=== PATIENT | female | born 1980 | race Caucasian/White ===

== ENCOUNTER 2019-06-29 11:51 | Inpatient (IN) | payer BC ==
[2019-06-29] MEDS ORDERED: Dinoprostone* 10 MG VAG.SUPP VAGINAL ONE (12:33)
--- NOTE | 2019-06-29 12:47 | HP ---
General Information - Reason for Visit IUP at 38-6/7 with gestational hypertension here for induction of labor - General Information Maternal Age: 38 Grav: 2 Para: 1 SAB: 0 IEA: 0 Estimated Due Date: 07/07/19 Determined By: Early Ultrasound Gestational Age in Weeks/Days: 38-6/7 Maternal Blood Type and Rh: A Positive - Results this Serology/RPR Result: Non-Reactive Rubella Result: Non-Immune - equivocal x 2 HBsAg Result: Negative HIV Result: Negative GBS Culture Result: Negative Past Medical History Delivery History: Hx Uncomplicated Vaginal Delivery Delivery History Comment: 07/2008 8lbs 5oz female. ITF x 1, 2nd degree lac with repair. Del[place] [facility] [place] by Nia Mahmood CNM. FOB #1 Pertinent Past Medical History: See Records Past Medical History Comment: Seasonal and environmental allergies Pertinent Past Surgical History: None Pertinent Family History: See Records Family History Comment: Father: Parkinson's Disease Brother: Js's Disease, Crohn's Disease, Asperger Syndrome - Antepartal Records Antepartal Records: Reviewed, Complicated by: - Low lying placenta, resolved at 23 weeks. Age 38 at JOSE, Normal NIPT/MSAFP Review of Systems Constitutional: Comfortable CV Complaint: No Respiratory: Shortness of Breath: No Gastrointestinal: No Nausea/Vomiting, Normal Bowel Movement Genitourinary: No Dysuria, No Bleeding, No Leaking Fluid Musculoskeletal: No Complaint, No Epigastric Pain Neurological: No Headache, No Visual Changes Movement: Normal Exam Allergies/Adverse Reactions: Allergies No Known Allergies Allergy (Verified 08/01/13 20:23) BP 125/78 HR 78 RR 18 T 98.1 SpO2 99% on RA - Measurements Height: 5 ft 5 in Weight: 175 lb Weight in lbs: [id number] Body Mass Index (BMI): 29.1 Pre- Weight: 140 lb - Exam Breast: Breast Exam Deferred CVA: No CVA Tenderness Extremities: No Edema Heart: Normal Rhythm/Heart Sounds HEENT: No Significant Findings Lungs: Clear Bilaterally Rectal: Rectal Exam Deferred Reflexes: DTR 2+ Thyroid: No Thyromegaly - Abdominal Exam Abdomen Exam: Non-Tender, Fundal Height Consistent with Dates - Ultrasound/Biophysical Profile Ultrasound Status: Not Done Targeted Exam Findings See L&D Outpatient Visit Provider Note for Findings: N/A Estimated Weight: 7.5-8lbs by Bethany Cervical Exam: 1cm Effacement: Thick Station: -2 Presenting Part: Vertex Membrane Status: Intact Sterile Speculum Exam: Not done Bleeding/Discharge: None EFM Findings - External Monitor Findings Baseline Heart Rate: 130 External Monitor Findings: Accelerations Present, No Pattern of Variable or Late Decelerations, Variability Moderate, Baseline Stable External Monitor Findings Comment: No evidence of metabolic acidemia Contractions: Irregular, Mild Contraction Frequency: 1 in 20 minutes Assessment/Plan - Assessment IUP at 38-6/7 with gestational hypertension AMA age 38 at JOSE No evidence of metabolic acidemia Rubella equivocal x 2 - Plan Plan: Cervical Ripening Plan Comment: Admit. PARQ Cervical ripening with Cervidil. All ?s answered. Pt and FOB agree. Will place, monitor per protocol, remove in 12-16 hours or sooner PRN onset active labor, intolerance, or tachysystole. Anticipate progression into labor and . - Date/Time of Admission Date of Admission: 06/29/19 Time of Admission: 12:40
[2019-06-29 13:25] LABS: Urine Appearance Clear; Urine Bacteria Absent (Absent); Urine Bilirubin Negative (Negative); Urine Blood Negative (Negative); Urine Color Yellow; Urine Glucose Negative (Negative); Urine Ketones Negative (Negative); Urine Nitrite Negative (Negative); Urine Protein Negative (Negative); Urine Red Blood Cell Absent (Absent); Urine Specific Gravity 1.011 (1.010-1.030); Urine Squamous Epithelial Cell Present (Absent); Urine Urobilinogen Negative (Negative); Urine White Blood Cell Trace(0-5/hpf) (Absent)
[2019-06-29 13:38] LABS: Urine Benzodiazepine Screen None Detected (None Detect); Urine Opiates Screen None Detected (None Detect)
[2019-06-30] MEDS ORDERED: Oxytocin in LR* 20 UNITS/1,000 ML BAG IVPB SCH (09:00)
--- NOTE | 2019-06-30 09:01 | PN ---
Progress Note - Progress Note Date of Service: 06/30/19 SOAP: Subjective: Pt reports she slept overnight. Feeling ctx, but mild. Feeling ready for induction. and mother at bedside. Denies headache, vision changes, abdominal pain. Objective: Cervix: 2-3 cm/ 60%/ -2/ vtx FHR: Baseline 130/ moderate variability/ + accels/ no decels UCs: 2-5 minutes, mild BP: 121/78 Assessment: 38 year old at 39 0/7 weeks gestation undergoing IOL for gestational HTN, cervix favorable, no evidence of acidemia. Plan: Initiate Pitocin augmentation, low dose protocol. Labor support and comfort measures as needed. Anticipate .
[2019-06-30 09:55] LABS: ABS Basophils 0.1 10^3/ul (0-0.2); ABS Eosinophils 0.2 10^3/ul (0-0.6); ABS Lymphocytes 1.7 10^3/ul (1.0-4.8); ABS Monocytes 0.6 10^3/ul (0-0.8); ABS Neutrophils 7.4 10^3/ul (1.5-7.7); Eosinophil % 1.7 %; Hematocrit 36 % (35-47); Hemoglobin 12.5 g/dL (12.0-16.0); Lymphocyte % 17.1 %; Mean Corpuscular HGB Conc 35 g/dL (31-36); Mean Corpuscular Hemoglobin 32 pg (27-31); Mean Corpuscular Volume 93 fL (80-97); Mean Platelet Volume 9.5 fL (7.4-10.4); Nucleated Red Blood Cells % 0.1; Platelet Count 200 10^3/uL (150-450); Red Blood Count 3.88 10^6 /uL (3.70-4.87); Red Cell Distribution Width 14 % (10-15); White Blood Count 9.9 10^3/uL (3.5-10.8)
[2019-06-30 10:13] LABS: ALT 9 U/L (7-52); Albumin 3.3 g/dL (3.2-5.2); Alkaline Phosphatase 105 U/L (34-104); BUN/Creatinine Ratio 13.2 (8-20); Blood Urea Nitrogen 7 mg/dL (6-24); CO2 Carbon Dioxide 22 mmol/L (22-32); Calcium 8.7 mg/dL (8.6-10.3); Chloride 105 mmol/L (101-111); EGFR African American 157.9 (>60); EGFR Non-African American 130.5 (>60); Globulin 3.2 g/dL (2-4); Glucose 106 mg/dL (70-100); Sodium 135 mmol/L (135-145); Total Protein 6.5 g/dL (6.4-8.9); Uric Acid 4.6 mg/dL (2.3-6.6)
[2019-06-30 11:16] LABS: Anion Gap 8 mmol/L (2-11)
--- NOTE | 2019-06-30 11:30 | PN ---
Progress Note - Progress Note Date of Service: 06/30/19 SOAP: Subjective: Pt reports ctx increasing in strength and frequency, but still comfortable. Objective: Pitocin at 8 mu/min FHR: Baseline 130/ moderate variability/ + accels/ no decels UCs: 3-4 minutes BP: 130/72 Membranes intact Labs WNL, unable to result AST d/t hemolysis Assessment: Pt appears to be making good progress. No evidence of acidemia. No laboratory evidence of preeclampsia. Plan: Continue Pitocin IOL. If BPs elevated with redraw CMP, but as no other abnormal values and BP WNL will hold off at this time.
--- NOTE | 2019-06-30 14:13 | PN ---
Progress Note - Progress Note Date of Service: 06/30/19 SOAP: Subjective: Pt reports ctx continue to increase in strength and frequency. Still able to talk through them for the most part. Objective: FHR: Baseline 140/ moderate variability/ no accels/ no decels UCs: 2-3 minutes, mild to moderate BP: 127/77, Temp: 97.7 Cervical exam deferred Membranes intact Pitocin at 14 mu/min Assessment: Pt appears to be continuing to progress towards active labor. No evidence of acidemia. Plan: Continue Pitocin induction. Will check cervix again in a few hours or as needed. Encourage ambulation and rest.
[2019-06-30 14:21] LABS: Potassium Redraw 3.8 mmol/L (3.5-5.0)
--- NOTE | 2019-06-30 16:07 | PN ---
Progress Note - Progress Note Date of Service: 06/30/19 SOAP: Subjective: [] Objective: [] Assessment: [] Plan: []
[2019-06-30] MEDS ORDERED: Buffered Lidocaine 1% SYRIN* 1 ML/SYRINGE INTRADERM ONE (16:29)
[2019-06-30] MEDS ORDERED: Lactated Ringers 1000 ML Bag* 1,000 ML IV ONE ×2 (16:29→21:58)
--- NOTE | 2019-06-30 16:53 | PN ---
Progress Note - Progress Note Date of Service: 06/30/19 Note: Pt experienced SROM to clear fluid. Initially FHR tracing remained Category I but then began to experience variable decelerations, increasing in depth and length. Pitocin reduced by half at time of SROM. Pt placed on left side then right side and IV fluid bolus initiated without improvement of variable decels. Pt then placed on hands and knees position and Pitocin turned off. Variable decels have progressively improved since then. FHR currently baseline 140/ moderate variability/ + accels. Ctx currently every 4-5 minutes. Pitocin off. Recommend continuing in this position as tolerated and if FHR remains free of decelerations through multiple ctx can try another position if pt wishes. Will monitor closely. Consider restarting Pitocin if FHR stable and ctx continue to space out.
[2019-06-30] MEDS ORDERED: Lactated Ringers 1000 ML Bag* 1,000 ML IV SCH ×2 (17:00→22:00)
--- NOTE | 2019-06-30 18:16 | PN ---
Progress Note - Progress Note Date of Service: 06/30/19 Note: Variable decelerations resolved at this time, pt in throne position. Ctx spaced out to every 5-6 minutes. Pitocin restarted at 2 mu/ min. Amniotic fluid clear. Pt coping well with ctx. Mother and FOB at bedside. BP 131/79, Temp 99.1. Will monitor FHR closely, recheck cervix 2-3 hours after last check.
--- NOTE | 2019-06-30 20:22 | PN ---
Progress Note - Progress Note Date of Service: 06/30/19 SOAP: Subjective: Pt reports ctx increasing in intensity. Coping well. Mother and FOB at bedside. Objective: FHR: Baseline 130/ moderate variability/ no accels/ variable decelerations UCs: Q 5 minutes Pitocin at 4 mu/ min Cervix: 4cm/ 80%/ -2 (at 1920, unchanged from prior exam around 3 hours prior) Fluid clear BP 138/75 Temp 98.2 Assessment: Category II tracing, variability moderate. No cervical change in 3 hours. Ctx appear to be inadequate at this time, but exercising caution about increasing Pitocin due to FHR decelerations. BP stable. No evidence of chorioamnionitis. Plan: Continue position changes to attempt to resolve variable decelerations. Attempt to increase Pitocin as tolerated per FHR. Dr. Alas updated previously about pt's condition. Will consult as needed if continued FHR concerns and/ or lack of labor progress.
[2019-06-30] MEDS ORDERED: OBEPIDURAL* 250 ML EPIDURAL ONE (20:53)
--- NOTE | 2019-06-30 21:19 | PN ---
Progress Note - Progress Note Date of Service: 06/30/19 SOAP: Subjective: Pt reports she is feeling increasingly uncomfortable and fatigued, requests pain relief. Objective: FHR: Baseline 130/ moderate variability/ no accels/ variable decelerations UCs: 2-6 minutes Platelets 200 Fluid Clear Pitocin off Assessment: FHR Category II. Labor progress slow. Pt in need of pain relief. Plan: Discussed options for pain relief with pt. Pt prefers epidural. Anesthesiologist notified. When pt comfortable with epidural will see if we can restart Pitocin. Will encourage frequent position changes. Discussed pt with Dr. Alas, including slow cervical change in the context of recurrent variable decelerations and ruptured membranes since 1540.
[2019-06-30] MEDS ORDERED: Famotidine TAB* 20 MG PO PRN (21:58)
[2019-06-30] MEDS ORDERED: Sodium Citrate/Citric Acid* 15 ML UDC PO PRN (21:58)
[2019-06-30] MEDS ORDERED: Phenylephrine 40 MCG/ML SYRINGE IV PUSH PRN (21:58)
[2019-06-30] MEDS ORDERED: OBEPIDURAL* 250 ML EPIDURAL SCH (22:00)
--- NOTE | 2019-06-30 22:55 | PN ---
Progress Note - Progress Note Date of Service: 06/30/19 SOAP: Pt comfortable with epidural, trying to sleep. Following placement of epidural anesthesiologist Dr. 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 Pt denies headache, neck pain. No arm drooping, no slurred speech. Dr. Christensen consulted by phone with neurologist Dr. Ventura. Vaibhav Syndrome may be caused by epidural medication impacting ganglion nerve. In absence of further neurological symptoms, no need to intervene, and should resolve following removal of epidural. Dr. Ventura recommends formal neurology consult for tomorrow AM in the absence of additional neurological sx. Neuo consult initiated. FHR: Baseline 130/ moderate variability/ + accels/ no decels UCs: 3-9 minutes Fluid clear BP 109/60 Temp: 98.2 Impression: FHR now Category I. UCs likely inadequate. 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 Plan: Restart Pitocin at low dose, aiming for ctx about every 5 minutes. Closely monitor FHR. Position changes as tolerated by baby. Recheck once ctx have become more regular for an hour. Neurology consult in AM or sooner as needed. Dr. Alas notified of above developments, updated by phone by Dr. Christensen.
--- NOTE | 2019-07-01 01:00 | PN ---
Progress Note - Progress Note Date of Service: 07/01/19 SOAP: Subjective: Pt comfortable with epidural. Has been sleeping Objective: Cervix: 5cm/ 80%/ 0 station/ vtx, suspect CHRIS position, possibly asynclitic FHR:Baseline 130/ moderate variability/ + accels/ early decels UCs: Q 4-6 minutes Pitocin at 4 mu/min T-98.9 BP:117/74 Fluid clear, membranes ruptured 9 hours Ptosis appears to have resolved. Assessment: Pt making slow cervical change, but has made some change. Suspect asynclitic position. FHR currently Category I with periods of Category II for variable decelerations. No evidence of chorioamnionitis. Plan: Recheck in 2 hours. If no or minimal change will place IUPC at that time. Continue to closely monitor FHR.
[2019-07-01] MEDS ORDERED: Acetaminophen TAB* 325 MG PO PRN (05:03)
[2019-07-01] MEDS ORDERED: Measles, Mumps,Rubella VACC* 0.5 ML/VIAL SUBCUT ONE (05:03)
[2019-07-01] MEDS ORDERED: Glycerin ADULT SUPP PR PRN (05:03)
--- NOTE | 2019-07-01 05:16 | PROCNOTE ---
[facility] OB: Delivery Note - Delivery A Date of : 07/01/19 Time of : 04:18 [place] Sex: Male Weight at : 3.289 kg Score 1 Minute: 9 Score 5 Minutes: 9 Gestational Age in Weeks and Days at Delivery: 39 Weeks and 1 Days Delivery Method: Spontaneous Vaginal Labor: Induced - for gestational HTN Did Patient attempt ?: N/A, No Previous Amniotic Fluid: Clear Estimated Blood Loss: 300 Anesthesia/Analgesia: [facility] for Labor - Dr. Christensen Anesthesia Comment: Pt developed Vaibhav Syndrome, soon after epidural, resolved Delivered By: Asya Dooley - Nursery Level of Nursery: Regular/Bedside - Perineum Perineal Injury: 1st Degree Perineal Repair: By Delivering Practioner - Events Delivery Events of Note: Pitocin During Labor, Supplemental O2 to Mother - Additional Delivery Notes Additional Delivery Notes: Pt admitted to Labor and Delivery for IOL for gestational hypertension. Pt had cervical ripening with Cervidil, followed by Pitocin induction. As labor began to progress pt had SROM to clear fluid. Progress was slow with episodes of recurrent variable decelerations. Pitocin turned off and restarted several times. However, pt then dilated from 5 to 10 cm in about 2 hours. At that time, pt coached to push with ctx. Pt pushed effectively with steady descent. FHR was stable during this time. Infant brought to [facility] and pt coached through slow, controlled delivery of the head, with compound arm. Shoulders followed easily and infant placed on maternal abdomen with vigorous cry and good tone. After cord pulsation ceased cord clamped x2 and cut by infant's father. Placenta soon delivered, spontaneous and kylee, with gentle cord traction. Fundal massage performed and Pitocin increased to 250 cc/ hr. Bleeding minimal. Inspection of the perineum revealed small first degree laceration, repaired with Vicryl 3-0, resulting in good hemostasis and tissue approximation. Pt also noted to have thin band of tissue in vaginal area linking posterior vaginal wall with right vaginal wall. Pt reports this is irritating and sometimes gets tampons caught in it, would like to have it removed. Area numbed with lidocaine and each end of the string of tissue cut and vaginal wall sutured in each spot, with good hemostasis. at this time. Mother and baby stable at this time, anticipate normal course.
[2019-07-01] MEDS ORDERED: Oxytocin in LR* 20 UNITS/1,000 ML BAG IVPB SCH (06:00)
[2019-07-01] MEDS ORDERED: Lactated Ringers 1000 ML Bag* 1,000 ML IV SCH (06:00)
[2019-07-01] MEDS: Witch Hazel PAD* JAR TOPICAL PRN (06:04)
[2019-07-01] MEDS: Dibucaine 1% 28.35 GM TUBE PR PRN (06:05)
[2019-07-01] MEDS ORDERED: Lidocaine 1% INJ* 10 MG/ML 30 ML SDV ONE (06:22)
[2019-07-01] MEDS: Ibuprofen TAB* 600 MG PO PRN ×3 (08:06→20:09)
[2019-07-01] MEDS: Docusate CAP* 100 MG PO SCH ×3 (08:06→20:09)
[2019-07-01] MEDS ORDERED: Influenza VAC *QUAD* 2019-20* 0.5 ML SYRINGE IM ONE (09:00)
[2019-07-02 05:22] VITALS: BP 131/80
[2019-07-02] MEDS: Ibuprofen TAB* 600 MG PO PRN (06:17)
[2019-07-02 06:23] LABS: ABS Basophils 0.1 10^3/ul (0-0.2); ABS Eosinophils 0.2 10^3/ul (0-0.6); ABS Lymphocytes 2.5 10^3/ul (1.0-4.8); ABS Monocytes 0.8 10^3/ul (0-0.8); ABS Neutrophils 7.4 10^3/ul (1.5-7.7); Eosinophil % 2.1 %; Hematocrit 30 % (35-47); Hemoglobin 10.7 g/dL (12.0-16.0); Lymphocyte % 22.6 %; Mean Corpuscular HGB Conc 35 g/dL (31-36); Mean Corpuscular Hemoglobin 33 pg (27-31); Mean Corpuscular Volume 93 fL (80-97); Mean Platelet Volume 8.8 fL (7.4-10.4); Nucleated Red Blood Cells % 0.1; Platelet Count 168 10^3/uL (150-450); Red Blood Count 3.26 10^6 /uL (3.70-4.87); Red Cell Distribution Width 14 % (10-15)
[2019-07-02] MEDS: Docusate CAP* 100 MG PO SCH (07:28)
[2019-07-02] MEDS: Dibucaine 1% 28.35 GM TUBE PR PRN (07:28)
[2019-07-02] MEDS: Witch Hazel PAD* JAR TOPICAL PRN (07:29)
[2019-07-02] MEDS ORDERED: Ferrous Gluconate TAB* 324 MG TAB PO SCH (09:00)
== END 2019-07-02 11:25 | disposition home or self-care (01) | DRG 560 ==
LOC: MCHOBOUT 11:51 → MCHOB 12:31
PROVIDERS: ADMIT Midwife; ATTEND Midwife
PROC: 4A1HXCZ Monitoring of Products of Conception, Cardiac Rate, External Approach (ICD-10-PCS; 2019-06-29)
PROC: 3E0P7VZ Introduction of Hormone into Female Reproductive, Via Natural or Artificial Opening (ICD-10-PCS; 2019-06-29)
PROC: 3E033VJ Introduction of Other Hormone into Peripheral Vein, Percutaneous Approach (ICD-10-PCS; 2019-06-29)
PROC: 10E0XZZ Delivery of Products of Conception, External Approach (ICD-10-PCS; principal; 2019-07-01)
PROC: 0HQ9XZZ Repair Perineum Skin, External Approach (ICD-10-PCS; 2019-07-01)
PROC: 0JBB3ZZ Excision of Perineum Subcutaneous Tissue and Fascia, Percutaneous Approach (ICD-10-PCS; 2019-07-01)
DX: O13.4 Gestational [pregnancy-induced] hypertension without significant proteinuria, complicating childbirth (principal); Z37.0 Single live birth; O32.6XX0 Maternal care for compound presentation, not applicable or unspecified; O70.0 First degree perineal laceration during delivery; O76 Abnormality in fetal heart rate and rhythm complicating labor and delivery; O75.89 Other specified complications of labor and delivery; G90.2 Horner's syndrome; H02.401 Unspecified ptosis of right eyelid; T88.59XA Other complications of anesthesia, initial encounter; Y92.239 Unspecified place in hospital as the place of occurrence of the external cause; Z3A.39 39 weeks gestation of pregnancy; Z23 Encounter for immunization
CPT/HCPCS: 36415; 80053; 80307; 81003; 81015; 84550; 85025; 86850; 86900; 86901; 87086; 90686; 90707; A9270-GY

== ENCOUNTER 2019-08-12 14:41 | Emergency (ER) | payer BC ==
--- NOTE | 2019-08-12 15:22 | UC ---
- HPI Summary HPI Summary: Pt is a 38 y/o F presenting to the ED with a chief complaint of a breast issue. Patient is 6 weeks post and while she noticed edema and erythema of the L breast. She was dx'ed with L breast mastitis, was prescribed and finished a cycle of Clindamycin, but her sx worsened yesterday so she called her PCP who prescribed Dicloxacillin. States initially her abscess had resolved but she noticed new redness yesterday.She has taken 3 doses total (one day). She notes drainage today, as well as extreme pain and mild fatigue. She denies fever. Follows w [facility]. - History of Current Complaint Hx Obtained From: Patient Breast Chief Complaint: Pain, Drainage, Breast, Left Onset/Duration: Started Days Ago, Still Present Timing: Constant, Lasting Days Breast Pain Aggravating Factors: Breast Feeding Breast Pain Alleviating Factors: Nothing Breast Associated Signs/Symptoms: Discharge, Nodule/Mass - Allergy/Home Medications Allergies/Adverse Reactions: Allergies Allergy/AdvReac Type Severity Reaction Status Date / Time No Known Allergies Allergy Verified 08/01/13 20:23 PMH/Surg Hx/FS Hx/Imm Hx Previously Healthy: Yes Cardiovascular History: Hypertension - gestational - Family History Known Family History: Negative: Renal Disease - Social History Alcohol Use: None Substance Use Type: None Smoking Status (MU): Former Smoker - Immunization History Most Recent Influenza Vaccination: 07/01/19 Most Recent Pneumonia Vaccination: never Review of Systems All Other Systems Reviewed And Are Negative: Yes Constitutional: Negative: Fever Musculoskeletal: Positive: Myalgia - L breast Physical Exam - Summary Physical Exam Summary: Constitutional: Well-developed, Well-nourished, Alert. (-) Distressed Skin: Warm, Dry. L breast: 8x8cm of erythema to superior lateral breast. Purulent drainage and induration. HENT: Normocephalic; Atraumatic Eyes: Conjunctiva normal Neck: Musculoskeletal ROM normal neck. (-) JVD, (-) Stridor, (-) Nuchal rigidity Cardio: Rhythm regular, rate normal, Heart sounds normal; Intact distal pulses; Radial pulses are 2+ and symmetric. (-) Murmur Pulmonary/Chest wall: Effort normal. (-) Respiratory distress, (-) Wheezes, (-) Rales Abd: Soft, (-) tenderness, (-) Distension, (-) Guarding, (-) Rebound Musculoskeletal: (-) Edema Lymph: (-) Cervical adenopathy Neuro: Alert, Oriented x3 Psych: Mood and affect Normal Triage Information Reviewed: Yes Vital Signs: Initial Vital Signs Temp 97.8 F 08/12/19 14:47 Pulse 70 08/12/19 14:47 Resp 16 08/12/19 14:47 BP 125/93 08/12/19 14:47 Pulse Ox 98 08/12/19 14:47 Vital Signs Reviewed: Yes Procedures - Sedation Patient Received Moderate/Deep Sedation with Procedure: No Diagnostics - Radiology Breast US Radiology Interpretation Completed By: Radiologist Summary of Radiographic Findings: HETEROGENEOUS EDEMATOUS TISSUE OF THE LEFT LATERAL BREAST SUGGESTIVE OF PHLEGMON GIVEN THE CLINICAL HISTORY, WITHOUT LOCULATED FLUID COLLECTION TO SUGGEST ABSCESS. LOW SUSPICION CYST OF THE LATERAL LEFT BREAST. ED physician has reviewed this report. Re-Evaluation - Re-Evaluation 1st re-eval Re-Evaluation Time: 16:28 Change: Unchanged Comment: Discussed US results w/ pt. Plan for labs and probable outpatient follow-up. Second Eval Change: Improved - normal WBC, afebrile. Plan for re eval w PCP in 2 days, return for worsening symptoms. Breast Pain Course/Dx - Course Course Of Treatment: 38-year-old female with a history of left breast mastitis, recently on clindamycin presents with new abscess and worsening of redness of the breast. Patient was prescribed new antibiotic yesterday. No fevers, well appearing. Physical exam with tenderness to the lateral left breast,. Drainage from the area. Plan for US breast, labs. We'll likely have her follow up outpatient for wound recheck as she is well-appearing. If she fails outpatient abx therapy , she will need to come to ED for IV abx, she is aware. - Diagnoses Provider Diagnoses: Mastitis Discharge ED - Sign-Out/Discharge Documenting (check all that apply): Patient Departure - Discharge Plan Condition: Stable Disposition: HOME Patient Education Materials: Mastitis (ED) Referrals: [facility] [Outside] Additional Instructions: You were seen in the emergency department for mastitis Your ultrasound did not show any evidence of a abscess that required drainage. Please continue antibiotics, return to the ED for worsening symptoms including increasing redness, fevers, pain. You may need IV antibiotics if you do not improve on your oral antibiotics. If any studies were not completed at the time of discharge you will be called with the relevant results. Please follow up with your primary care doctor in next 2-3 days. It was a pleasure taking care of you today. - Billing Disposition and Condition Condition: STABLE Disposition: Home - Attestation Statements Document Initiated by Monty: Yes Documenting Scribe: Janna Mae Provider For Whom Monty is Documenting (Include Credential): Addy You MD. Scribe Attestation: I, Janna Mae, scribed for Addy You MD. on 08/12/19 at 1712. Scribe Documentation Reviewed: Yes Provider Attestation: The documentation as recorded by the [email or web address], Janna Mae accurately reflects the service I personally performed and the decisions made by me, Addy You MD. Status of Scribe Document: Viewed
[2019-08-12 16:39] LABS: ABS Basophils 0.1 10^3/ul (0-0.2); ABS Eosinophils 0.3 10^3/ul (0-0.6); ABS Lymphocytes 2.4 10^3/ul (1.0-4.8); ABS Monocytes 0.6 10^3/ul (0-0.8); Eosinophil % 3.3 %; Hematocrit 37 % (35-47); Hemoglobin 12.8 g/dL (12.0-16.0); Lymphocyte % 28.8 %; Mean Corpuscular HGB Conc 34 g/dL (31-36); Mean Corpuscular Hemoglobin 31 pg (27-31); Mean Corpuscular Volume 90 fL (80-97); Mean Platelet Volume 7.8 fL (7.4-10.4); Nucleated Red Blood Cells % 0.2; Platelet Count 386 10^3/uL (150-450); Red Blood Count 4.14 10^6 /uL (3.70-4.87); Red Cell Distribution Width 13 % (10-15); White Blood Count 8.4 10^3/uL (3.5-10.8)
[2019-08-12 17:09] LABS: Albumin 3.7 g/dL (3.2-5.2); BUN/Creatinine Ratio 13.9 (8-20); Calcium 9.2 mg/dL (8.6-10.3); EGFR African American 110.9 (>60); EGFR Non-African American 91.7 (>60)
[2019-08-12 17:19] LABS: Total Bilirubin 0.2 mg/dL (0.2-1.0)
[2019-08-12 17:21] VITALS: BP 132/73
[2019-08-12 17:23] LABS: Albumin/Globulin Ratio 0.9 (1-3); Globulin 4.1 g/dL (2-4); Total Protein 7.8 g/dL (6.4-8.9)
== END 2019-08-12 17:20 | disposition home or self-care (01) ==
LOC: ED 14:41
DX: N61.0 Mastitis without abscess (principal); Z87.891 Personal history of nicotine dependence
CPT/HCPCS: 36415; 80053; 85025; 99281